=== PATIENT | male | born 1980 | race Caucasian/White ===

== ENCOUNTER 2016-12-14 09:55 | Inpatient (IN) | payer SELFPAY ==
[2016-12-14] VITALS (11 sets, daily range): BP systolic 149–264; BP diastolic 83–179; PULSE 66–96; RESP 13–18; TEMP 98.2–98.8; O2SAT 93–98
[~2016-12-14] VITALS: Ht 190.5 cm; Wt 118.3 kg
[~2016-12-14 09:55] MED LIST: CIPR500T2 PO; HYDR-2768 PO; LISI40TA PO; LORT5TAB PO; METR-1 PO; STOO100C PO
--- NOTE | 2016-12-14 10:13 | PD ---
HPI Chief Complaint: Bleeding Time Seen by Provider: 10:13 Travel History International Travel<30 days: No Contact w/Intl Traveler<30days: No Traveled to known affect area: No History of Present Illness HPI 36-year-old male came to the emergency room with history of coughing up blood and hematospermia. Patient says that the hematospermia has been going on for past 1 month but for past 2 weeks it has been consistent with every ejaculation. Coughing of blood has been going on for past 1 week. He has some shortness of breath and some chest pain. Location no headache. His blood pressure upon arrival was 245 systolic. He shouldn't has history of hypertension but has not taken any of his medications for past 4 months because he does not have insurance. No history of penile discharge otherwise. No history of long distance travel or any recent surgeries or procedure. Patient has never had blood clots in the legs or lungs. There is family history of breast cancer and Hodgkin's lymphoma in his mother. Patient is a heavy smoker for many years. [facility] Past Medical History Narrative Medical List of his past medical history as reviewed from the nursing note. Cancer: No Cardiovascular Problems: Yes Diverticulitis: Yes Endocrine: No Genitourinary: No Hypertension: Yes Immune Disorder: No Musculoskeletal: No Neurologic: No Reproductive: No Respiratory: No Tetanus Vaccination: Unknown Influenza Vaccination: No Past Surgical History Endocrine Surgery: Yes (tonsillectomy when 6 years old) Other Surgery: Yes Social History Alcohol Use: No Tobacco Use: Yes (1 ppd) Substance Use: Yes (IRENA ) Allergies-Medications (Allergen,Severity, Reaction): Coded Allergies: No Known Allergies (Verified , 12/04/11) Comments No known drug allergies. Reported Meds & Prescriptions Reported Meds & Active Scripts Active Reported Hydrochlorothiazide 25 Mg Tab 25 Mg PO DAILY Lisinopril 40 Mg Tab 40 Mg PO DAILY Narrative Medication List of his home medications reviewed from the nursing note. However patient has not taken any of these medications in past 4 months. Review of Systems Except as stated in HPI: all other systems reviewed are Neg Physical Exam Narrative GENERAL: Awake, alert, obese, mild distress SKIN: Warm and dry. HEAD: Atraumatic. Normocephalic. EYES: Pupils equal and round. No scleral icterus. No injection or drainage. ENT: No nasal bleeding or discharge. Mucous membranes pink and moist. NECK: Trachea midline. No JVD. CARDIOVASCULAR: Regular rate and rhythm. No murmur appreciated. RESPIRATORY: No accessory muscle use. Coarse breath sounds. Breath sounds equal bilaterally. GASTROINTESTINAL: Abdomen soft, non-tender, nondistended. Hepatic and splenic margins not palpable. MUSCULOSKELETAL: No obvious deformities. No clubbing. No cyanosis. No edema. NEUROLOGICAL: Awake and alert. No obvious cranial nerve deficits. Motor grossly within normal limits. Normal speech. PSYCHIATRIC: Appropriate mood and affect; insight and judgment normal. Data Data Last Documented VS Vital Signs Date Time Temp Pulse Resp B/P Pulse Ox O2 Delivery O2 Flow Rate FiO2 12/14/16 11:30 98.8 86 243/151 98 Room Air 12/14/16 10:10 16 Orders Electrocardiogram (12/14/16 10:18) Basic Metabolic Panel (Bmp) (12/14/16 10:18) Ckmb (Isoenzyme) Profile (12/14/16 10:18) Complete Blood Count With Diff (12/14/16 10:18) D-Dimer (12/14/16 10:18) Magnesium (Mg) (12/14/16 10:18) Prothrombin Time / Inr (Pt) (12/14/16 10:18) Act Partial Throm Time (Ptt) (12/14/16 10:18) Troponin I (12/14/16 10:18) Chest, Single Ap (12/14/16 10:18) Ecg Monitoring (12/14/16 10:18) Bilateral Bp Monitoring (12/14/16 10:18) Iv Access Insert/Monitor (12/14/16 10:18) Oximetry (12/14/16 10:18) Oxygen Administration (12/14/16 10:18) Sodium Chloride 0.9% Flush (Ns Flush) (12/14/16 10:30) Labetalol Inj (Trandate Inj) (12/14/16 11:30) Labetalol Inj (Trandate Inj) (12/14/16 11:30) Aspirin Chew (Aspirin Chew) (12/14/16 11:45) Admit Order (Ed Use Only) (12/14/16 11:31) Admit To Inpatient (12/14/16 ) Code Status (12/14/16 11:31) Vital Signs (Adult) Q4H (12/14/16 11:31) Activity Oob With Assistance (12/14/16 11:31) Diet Heart Healthy (12/14/16 Lunch) Sodium Chloride 0.9% Flush (Ns Flush) (12/14/16 11:45) Sodium Chloride 0.9% Flush (Ns Flush) (12/14/16 21:00) Acetaminophen (Tylenol) (12/14/16 11:45) Ondansetron Inj (Zofran Inj) (12/14/16 11:45) Sennosides (Senokot) (12/14/16 11:45) Temazepam (Restoril) (12/14/16 11:45) Comprehensive Metabolic Panel (12/15/16 06:00) Complete Blood Count With Diff (12/15/16 06:00) Creatine Kinase (Cpk) (12/14/16 17:00) Creatine Kinase (Cpk) (12/14/16 23:00) Troponin I (12/14/16 17:00) Troponin I (12/14/16 23:00) Electrocardiogram (12/14/16 17:00) Electrocardiogram (12/14/16 23:00) Case Management Consult (12/14/16 11:31) Scd Bilateral/Knee High SHEFALI.BID (12/14/16 11:31) Willy Bilateral/Knee High SHEFALI.QSHIFT (12/14/16 11:31) Acetaminophen (Tylenol) (12/14/16 11:45) Naloxone Inj (Narcan Inj) (12/14/16 11:45) Inpatient Certification (12/14/16 ) Lipid Profile (12/15/16 06:00) Hemoglobin (Hgb) A1c (12/15/16 06:00) Echo 2d Comp W/Dopp(Routine) (12/14/16 ) Labs Laboratory Tests Test 12/14/16 10:28 White Blood Count 10.3 TH/MM3 Red Blood Count 5.27 MIL/MM3 Hemoglobin 17.8 GM/DL Hematocrit 50.8 % Mean Corpuscular Volume 96.4 FL Mean Corpuscular Hemoglobin 33.7 PG Mean Corpuscular Hemoglobin 35.0 % Concent Red Cell Distribution Width 12.8 % Platelet Count 143 TH/MM3 Mean Platelet Volume 9.3 FL Neutrophils (%) (Auto) 66.2 % Lymphocytes (%) (Auto) 22.5 % Monocytes (%) (Auto) 7.6 % Eosinophils (%) (Auto) 3.1 % Basophils (%) (Auto) 0.6 % Neutrophils # (Auto) 6.8 TH/MM3 Lymphocytes # (Auto) 2.3 TH/MM3 Monocytes # (Auto) 0.8 TH/MM3 Eosinophils # (Auto) 0.3 TH/MM3 Basophils # (Auto) 0.1 TH/MM3 CBC Comment DIFF FINAL Differential Comment Prothrombin Time 11.0 SEC Prothromb Time International 1.0 RATIO Ratio Activated Partial 28.7 SEC Thromboplast Time D-Dimer Quantitative (PE/DVT) 0.30 MG/L FEU Sodium Level 138 MEQ/L Potassium Level 3.8 MEQ/L Chloride Level 105 MEQ/L Carbon Dioxide Level 27.0 MEQ/L Anion Gap 6 MEQ/L Blood Urea Nitrogen 15 MG/DL Creatinine 1.28 MG/DL Estimat Glomerular Filtration 63 ML/MIN Rate Random Glucose 114 MG/DL Calcium Level 9.2 MG/DL Magnesium Level 2.4 MG/DL Total Creatine Kinase 94 U/L Troponin I 0.30 NG/ML MDM Medical Decision Making Medical Screen Exam Complete: Yes Emergency Medical Condition: Yes Medical Record Reviewed: Yes Interpretation(s) Twelve-lead EKG was reviewed by me. Normal sinus rhythm, normal axis, LVH strain. Heart rate of 89 bpm. Differential Diagnosis Hypertensive crisis, PE, UTI, STD Narrative Course 11:22 AM blood test results came back. Patient had low risk for PE and d-dimer is negative. I am satisfied and would not pursue further for PE. His troponin is elevated but could be from the hypertension as well. I have ordered labetalol bolus and drip for this patient. He will get 2 baby aspirin's. Patient will need to be admitted. Critical Care Narrative Aggregate critical care time was 30 minutes. Time to perform other separately billable procedures was not included in the critical care time. My time did not include minutes spent treating any other patients simultaneously or on activities that did not directly contribute to the patient's treatment. The services I provided to this patient were to treat and/or prevent clinically significant deterioration that could result in: Hypotensive emergency, labetalol drip, elevated troponin I provided critical care services requiring my management, as noted below: Chart data review, documentation time, medication orders and management, vital sign assessments/reviewing monitor data, ordering and reviewing lab tests, ordering and interpreting/reviewing x-rays and diagnostic studies, care of the patient and discussion of the patient with the admitting physicians. Procedures EKG Prior to Arrival: No Diagnosis Primary Impression: Hypertensive emergency Additional Impressions: Elevated troponin I level Hemoptysis Hematospermia Admitting Information Admitting Physician Requests: Admit Mariluz Gray MD Dec 14, 2016 10:13
[2016-12-14] MEDS ORDERED: SODIUM CHLORIDE 0.9% FLUSH 5 ML FLUSH IVF PRN (10:30)
[2016-12-14 10:42] LABS: AUTOMATED NEUTROPHIL # 6.8 TH/MM3 (1.8-7.7); BASOPHIL # 0.1 TH/MM3 (0-0.2); BASOPHIL % 0.6 % (0.0-2.0); EOSINOPHIL # 0.3 TH/MM3 (0-0.4); EOSINOPHIL % 3.1 % (0.0-4.0); HEMATOCRIT 50.8 % (39.0-51.0); HEMO FLAGS DIFF FINAL; LYMPH % 22.5 % (9.0-44.0); LYMPHOCYTE # 2.3 TH/MM3 (1.0-4.8); MEAN CELL VOLUME 96.4 FL (80.0-100.0); MEAN CORPUSCULAR HEMOGLOBIN 33.7 PG (27.0-34.0); MONO % 7.6 % (0.0-8.0); NEUT % 66.2 % (16.0-70.0); PLATELET COUNT 143 TH/MM3 (150-450); RED BLOOD COUNT 5.27 MIL/MM3 (4.50-5.90); RED CELL DISTRIBUTION WIDTH 12.8 % (11.6-17.2); WHITE BLOOD COUNT 10.3 TH/MM3 (4.0-11.0)
--- NOTE | 2016-12-14 10:55 | RADRPT ---
EXAM DATE/TIME: 12/14/2016 10:18 [facility] COMPARISON: No previous studies available for comparison. INDICATIONS : Short of breath. MEDICAL HISTORY : Hypertension. SURGICAL HISTORY : None. ENCOUNTER: Initial ACUITY: 2 days PAIN SCORE: 3/10 LOCATION: Bilateral chest FINDINGS: A single view of the chest demonstrates the lungs to be symmetrically aerated without evidence of mas s, infiltrate or effusion. The cardiomediastinal contours are unremarkable. Osseous structures are intact. There are multiple overlying electrocardiogram leads. CONCLUSION: No acute disease. Ned Swanson MD on December 14, 2016 at 10:53 Board Certified Radiologist. This report was verified electronically.
[2016-12-14 10:56] LABS: APTT (PATIENT) 28.7 SEC (24.3-30.1)
[2016-12-14 11:02] LABS: MAGNESIUM 2.4 MG/DL (1.5-2.5); POTASSIUM 3.8 MEQ/L (3.5-5.1)
[2016-12-14] MEDS ORDERED: LABETALOL HCL 100 MG/20 ML VIAL IVP ONE (11:30)
--- NOTE | 2016-12-14 11:38 | HHI.HP ---
[facility] Service [place] [facility] Primary Care Physician No Primary Care Physician Admission Diagnosis hypertensive emergency, elevated troponin, hematospermia Diagnoses: (1) Hypertensive emergency (2) Elevated troponin I level (3) Hematospermia (4) Hypertension (5) Tobacco dependence, continuous (6) MALIGNANT HYPERTENSION Chief Complaint: Hematospermia and hemoptysis Travel History International Travel<30 Days: No Contact w/Intl Traveler <30 Da: No Traveled to Known Affected Are: No History of Present Illness 36-year-old male with history of chronic tobacco abuse, hypertension, however not currently on a oral hypertensive medication 4 months comes to the ED for evaluation of hematospermia comes several months duration but more likely aware of that in the past month now , and as well as hemoptysis 2 days duration however no upper respiratory symptoms. He reports chronic history of tobacco abuse 20+ years. Patient reported being faithful to his and denies any STDs, believes hematospermia likely secondary to poorly controlled blood pressure. Patient also reports a history of masturbation as well as infertility however has not done any sperm count. He denies any other GI bleed. Abnormal labs include troponin I 0.3. He denies any chest pain or shortness of breath. Patient also report, he has not seen a PCP since 2011.He Usually get his medication from his father. 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 Living with girlfriend of previous 2.5 years. T: 17 pyh E: pt denies Illicits: uses cannabinoids 1-2 times/wk; remote hx of LSD and ectasy use as teenager Physical Exam Vital Signs Vital Signs Date Time Temp Pulse Resp B/P Pulse Ox O2 Delivery O2 Flow Rate FiO2 12/14/16 10:26 98 Room Air 12/14/16 10:26 98 Room Air 12/14/16 10:25 90 264/168 255/155 12/14/16 10:10 93 16 Room Air 12/14/16 09:59 98.2 96 16 166/172 98 12/14/16 09:59 262/179 Physical Exam GENERAL: This is a well-nourished, well-developed patient, in no apparent distress. SKIN: No rashes, ecchymoses or lesions. Cool and dry. HEAD: Atraumatic. Normocephalic. No temporal or scalp tenderness. EYES: Pupils equal round and reactive. Extraocular motions intact. No scleral icterus. No injection or drainage. ENT: Nose without bleeding, purulent drainage or septal hematoma. Throat without erythema, tonsillar hypertrophy or exudate. Uvula midline. Airway patent. NECK: Trachea midline. No JVD or lymphadenopathy. Supple, nontender, no meningeal signs. CARDIOVASCULAR: Regular rate and rhythm without murmurs, gallops, or rubs. RESPIRATORY: Clear to auscultation. Breath sounds equal bilaterally. No wheezes , rales, or rhonchi. GASTROINTESTINAL: Abdomen soft, non-tender, nondistended. No hepato-splenomegaly , or palpable masses. No guarding. MUSCULOSKELETAL: Extremities without clubbing, cyanosis, or edema. No joint tenderness, effusion, or edema noted. No calf tenderness. Negative Homans sign bilaterally. NEUROLOGICAL: Awake and alert. Cranial nerves II through XII intact. Motor and sensory grossly within normal limits. Five out of 5 muscle strength in all muscle groups. Normal speech. Laboratory Laboratory Tests Test 12/14/16 10:28 White Blood Count 10.3 Red Blood Count 5.27 Hemoglobin 17.8 Hematocrit 50.8 Mean Corpuscular Volume 96.4 Mean Corpuscular Hemoglobin 33.7 Mean Corpuscular Hemoglobin 35.0 Concent Red Cell Distribution Width 12.8 Platelet Count 143 Mean Platelet Volume 9.3 Neutrophils (%) (Auto) 66.2 Lymphocytes (%) (Auto) 22.5 Monocytes (%) (Auto) 7.6 Eosinophils (%) (Auto) 3.1 Basophils (%) (Auto) 0.6 Neutrophils # (Auto) 6.8 Lymphocytes # (Auto) 2.3 Monocytes # (Auto) 0.8 Eosinophils # (Auto) 0.3 Basophils # (Auto) 0.1 CBC Comment DIFF FINAL Differential Comment Prothrombin Time 11.0 Prothromb Time International 1.0 Ratio Activated Partial 28.7 Thromboplast Time D-Dimer Quantitative (PE/DVT) 0.30 Sodium Level 138 Potassium Level 3.8 Chloride Level 105 Carbon Dioxide Level 27.0 Anion Gap 6 Blood Urea Nitrogen 15 Creatinine 1.28 Estimat Glomerular Filtration 63 Rate Random Glucose 114 Calcium Level 9.2 Magnesium Level 2.4 Total Creatine Kinase 94 Troponin I 0.30 Result Diagram: 12/14/16 1028 12/14/16 1028 Imaging Last Impressions Chest X-Ray 12/14/16 1018 Signed Impressions: Service Date/Time: , December 14, 2016 10:18 - CONCLUSION: No acute disease. Ned Swanson MD Assessment and Plan Problem List: (1) MALIGNANT HYPERTENSION ICD Code: 401.0 Status: Chronic (2) Hypertensive emergency ICD Code: I16.1 Status: Acute (3) Elevated troponin I level ICD Code: R79.89 Status: Acute (4) Hematospermia ICD Code: R36.1 Status: Acute (5) Hemoptysis ICD Code: R04.2 Status: Acute (6) Tobacco dependence, continuous ICD Code: 305.1 Status: Chronic (7) Hypertension ICD Code: 401.0 Status: Chronic Assessment and Plan 36-year-old male with 1-Hypertensive urgency: He was started on labetalol drip, which I will continue. I will admit patient in ICU for close monitoring. Likely will resume hydrochlorothiazide 25 mg daily and Prinivil 40 mg daily when appropriate. Check 2-D echo secondary to elevated cardiac enzyme. 2-Elevated troponin I: Likely secondary to hypertensive crisis; however will continue ACS ruled out per protocol with serial cardiac enzyme and EKGs. Obtain 2-D echo. Will hold on cardiology consultation is patient denies any chest pain. 3-Chronic tobacco abuse: Patient advised against, start nicotine patch. 4-Hemoptysis 2 days: Patient with history of tobacco abuse, chest x-ray noted and reviewed without any cardio pulmonary disease. Continue to monitor and consider chest CT as well as pulmonary medicine consultation if no improvement. 5-Hematospermia: Check UA,UDS, sperm count, rule out STDs 6-Hypertension: Currently on labetalol drip 7-Thrombocytopenia: Will check LFTs and consider liver ultrasound 8-Impaired fasting glucose: No known history of diabetes type 2, check hemoglobin A1c as well as lipid profile and treat accordingly DVT prophylaxis: Chemical anti-prophylaxis is contraindicated, bilateral SCDs Code Status Full code Discussed Condition With Patient, ED physician Physician Certification 2 Midnight Certification Type: Admission for Inpatient Services Order for Inpatient Services The services are ordered in accordance with Medicare regulations or non- Medicare payer requirements, as applicable. In the case of services not specified as inpatient-only, they are appropriately provided as inpatient services in accordance with the 2-midnight benchmark. Estimated LOS (days): 2 days is the estimated time the patient will need to remain in the hospital, assuming treatment plan goals are met and no additional complications. Post-Hospital Plan: Not yet determined German King MD Dec 14, 2016 11:38
[2016-12-14] MEDS ORDERED: SENNOSIDES 8.6 MG TAB PO PRN (11:45)
[2016-12-14] MEDS ORDERED: ONDANSETRON HCL 4 MG/2 ML VIAL IVP PRN (11:45)
[2016-12-14] MEDS ORDERED: TEMAZEPAM 15 MG CAP PO PRN (11:45)
[2016-12-14] MEDS ORDERED: ACETAMINOPHEN 325 MG TAB PO PRN ×2 (11:45)
[2016-12-14] MEDS ORDERED: NALOXONE HCL 0.4 MG/ML AMP IV PRN (11:45)
[2016-12-14] MEDS ORDERED: ASPIRIN 81 MG CHEW TAB CHEW ONE (11:45)
[2016-12-14] MEDS ORDERED: SODIUM CHLORIDE 0.9% FLUSH 5 ML FLUSH FLUSH PRN (11:45)
[2016-12-14] MEDS: LABETALOL INJ 500 MG in SODIUM CHLORIDE 0.9% INJ 150 ML IV SCH ×2 (12:20→18:48)
[2016-12-14] MEDS ORDERED: RESP: ALBUTEROL 2.5 MG/IPRATROPIUM 0.5 MG NEB (PRN) NEB (12:30)
[2016-12-14 13:55] LABS: BLOOD, URINE NEG (NEG); COMMENT (UR) CULT NOT INDICATED; CULTURE IF INDICATED CULT NOT INDICATED; GLUCOSE,URINE NEG (NEG); KETONE, URINE NEG (NEG); MUCUS URINE FEW /lpf (OCC); NITRITE,URINE NEG (NEG); PH, URINE 7.5 (5.0-8.5); SQUAMOUS EPITHELIAL CELL URINE <1 /hpf (0-5); URINE COLOR YELLOW (YELLW/STRAW)
[2016-12-14 14:00] LABS: AMPHETAMINE, URINE NEG (NEG); BARBITURATES, URINE NEG (NEG); COCAINE, URINE NEG (NEG)
[2016-12-14] MEDS ORDERED: LISI40TA PO (14:30)
[2016-12-14] MEDS ORDERED: HYDR25TA5 PO (14:30)
[2016-12-14] MEDS: NICOTINE 21 MG/24 HR PATCH TD SCH (18:48)
[2016-12-14] MEDS: SODIUM CHLORIDE 0.9% FLUSH 5 ML FLUSH FLUSH SCH (20:38)
--- NOTE | 2016-12-14 20:50 | EKG ---
Date Performed: 12/14/2016 Time Performed: 09:36:32 PTAGE: 36 years EKG: Sinus rhythm LEFT VENTRICULAR HYPERTROPHY AND ST-T CHANGE ABNORMAL ECG INTERPRETATION BASED ON A DEFAULT AGE OF 3 0 YEARS NO PREVIOUS TRACING DOCTOR: Kevin Colón Interpretating Date/Time 12/14/2016 20:49:39
[2016-12-14] MEDS ORDERED: CHLORHEXIDINE GLUCONATE 2 % 1 PACK (2 CLOTHS)(extra cloths) TOP PRN (21:00)
[2016-12-14] MEDS ORDERED: REMOVE OLD NICODERM (NICOTINE) PATCH TD SCH (21:00)
[2016-12-15] VITALS (7 sets, daily range): BP systolic 135–145; BP diastolic 75–80; PULSE 63–70; RESP 12–18; TEMP 97.5–98.2; O2SAT 92–95
[2016-12-15] MEDS: LABETALOL INJ 500 MG in SODIUM CHLORIDE 0.9% INJ 150 ML IV SCH ×2 (02:44→06:32)
[2016-12-15] MEDS ORDERED: CHLORHEXIDINE GLUCONATE 2 % 1 PACK (2 CLOTHS)(taper/protocol) TOP SCH (04:00)
[2016-12-15 06:01] LABS: AUTOMATED NEUTROPHIL # 8.8 TH/MM3 (1.8-7.7); BASOPHIL % 0.4 % (0.0-2.0); EOSINOPHIL # 0.2 TH/MM3 (0-0.4); HEMATOCRIT 45.5 % (39.0-51.0); HEMO FLAGS DIFF FINAL; MEAN CELL VOLUME 95.2 FL (80.0-100.0); MEAN CORPUSCULAR HEMOGLOBIN 33.3 PG (27.0-34.0); MONO % 7.5 % (0.0-8.0); NEUT % 73.1 % (16.0-70.0); PLATELET COUNT 143 TH/MM3 (150-450); RED BLOOD COUNT 4.77 MIL/MM3 (4.50-5.90)
[2016-12-15 06:29] LABS: ALKALINE PHOSPHATASE 66 U/L (45-117); ALT (GPT) 37 U/L (12-78); ANION GAP 9 MEQ/L (5-15); AST (GOT) 16 U/L (15-37); BICARBONATE 25.9 MEQ/L (21.0-32.0); BLOOD UREA NITROGEN 23 MG/DL (7-18); CHLORIDE 106 MEQ/L (98-107); GLOMERULAR FILTRATION RATE 53 ML/MIN (>89); HDL CHOLESTEROL 23.5 MG/DL (40.0-60.0); LDL CHOLESTEROL 148 MG/DL (0-99); POTASSIUM 3.1 MEQ/L (3.5-5.1); SODIUM (NA) 141 MEQ/L (136-145); TOTAL BILIRUBIN ADULT 0.8 MG/DL (0.2-1.0)
--- NOTE | 2016-12-15 06:58 | RADRPT ---
EXAM DATE/TIME: 12/15/2016 05:36 [facility] COMPARISON: No previous studies available for comparison. INDICATIONS : Abdominal pain. MEDICAL HISTORY : None. SURGICAL HISTORY : None. ENCOUNTER: Initial ACUITY: 1 day PAIN SCORE: 5/10 LOCATION: Right abdomen, upper quadrant. FINDINGS: The bowel gas is nonspecific. There are no signs of obstruction or free air for technique. No defini te calcified stones are identified for technique. CONCLUSION: Nonspecific abdomen. Rahel Bardales MD on December 15, 2016 at 6:57 Board Certified Radiologist. This report was verified electronically.
[2016-12-15] MEDS: NICOTINE 21 MG/24 HR PATCH TD SCH (08:29)
[2016-12-15] MEDS ORDERED: LABETALOL HCL 100 MG/20 ML VIAL IV PUSH PRN (08:30)
[2016-12-15] MEDS: SODIUM CHLORIDE 0.9% FLUSH 5 ML FLUSH FLUSH SCH (08:31)
--- NOTE | 2016-12-15 08:35 | HHI.PR ---
Subjective Remarks Follow-up hypertensive crisis 12/15/16-patient seen and examined, complains of abdominal pain however abdominal x-ray negative. States he's had 3 bowel movements. Currently normotensive. Objective Vitals Vital Signs Date Time Temp Pulse Resp B/P Pulse Ox O2 Delivery O2 Flow Rate FiO2 12/15/16 06:00 66 12/15/16 05:03 18 12/15/16 04:00 70 12/15/16 04:00 97.5 64 18 139/75 92 12/15/16 02:00 67 12/15/16 00:00 97.6 69 12 145/80 92 12/15/16 00:00 69 12/14/16 22:00 71 12/14/16 20:00 75 12/14/16 20:00 98.3 75 13 149/83 93 12/14/16 18:00 75 12/14/16 16:00 98.3 66 18 151/85 95 12/14/16 16:00 77 12/14/16 14:00 98.2 70 18 151/84 96 Room Air 12/14/16 13:00 70 18 166/97 96 Room Air 12/14/16 12:30 78 16 218/134 98 Room Air 12/14/16 11:30 98.8 86 243/151 98 Room Air 12/14/16 10:26 98 Room Air 12/14/16 10:26 98 Room Air 12/14/16 10:25 90 264/168 255/155 12/14/16 10:10 93 16 Room Air 12/14/16 09:59 98.2 96 16 166/172 98 12/14/16 09:59 262/179 I/O 12/14/16 12/14/16 12/14/16 12/15/16 12/15/16 12/15/16 07:00 15:00 23:00 07:00 15:00 23:00 Intake Total 836 ml 426 ml Output Total 350 ml Balance 486 ml 426 ml Intake Oral 480 ml 80 ml IV Total 356 ml 346 ml Output Urine Total 350 ml # Voids 2 # Bowel Movements 1 1 Result Diagram: 12/15/16 0346 12/15/16 0346 Imaging Last Impressions Abdomen X-Ray 12/15/16 0000 Signed Impressions: Service Date/Time: Thursday, December 15, 2016 05:36 - CONCLUSION: Nonspecific abdomen. Rahel Bardales MD Chest X-Ray 12/14/16 1018 Signed Impressions: Service Date/Time: November 10:18 - CONCLUSION: No acute disease. Ned Swanson MD Objective Remarks GENERAL: NAD SKIN: Warm and dry. HEAD: Normocephalic. EYES: No scleral icterus. No injection or drainage. NECK: Supple, trachea midline. No JVD or lymphadenopathy. CARDIOVASCULAR: Regular rate and rhythm without murmurs, gallops, or rubs. RESPIRATORY: Breath sounds equal bilaterally. No accessory muscle use. GASTROINTESTINAL: Abdomen soft, mildly tender, nondistended. MUSCULOSKELETAL: No cyanosis, or edema. BACK: Nontender without obvious deformity. No CVA tenderness. A/P Problem List: (1) MALIGNANT HYPERTENSION ICD Code: 401.0 Status: Resolved (2) Hypertensive emergency ICD Code: I16.1 Status: Resolved (3) Elevated troponin I level ICD Code: R79.89 Status: Acute (4) Hematospermia ICD Code: R36.1 Status: Acute (5) Hemoptysis ICD Code: R04.2 Status: Resolved (6) Tobacco dependence, continuous ICD Code: 305.1 Status: Chronic (7) Hypertension ICD Code: 401.0 Status: Chronic Assessment and Plan 6-year-old male with 1-Hypertensive urgency: Currently normotensive on labetalol drip which will discontinued and resume hydrochlorothiazide 25 mg daily and Prinivil 40 mg daily. Check 2-D echo secondary to elevated cardiac enzyme. 2-Elevated troponin I: Likely secondary to hypertensive crisis; ACS ruled out per protocol with serial cardiac enzyme and EKGs. Obtain 2-D echo. Will hold on cardiology consultation is patient denies any chest pain. 3-Chronic tobacco abuse: Patient advised against, continue nicotine patch. 4-Hemoptysis 2 days: Resolved since admission. Patient with history of tobacco abuse, chest x-ray noted and reviewed without any cardio pulmonary disease. Continue to monitor and consider chest CT as well as pulmonary medicine consultation if no improvement. 5-Hematospermia: UA negative,UDS positive for cannabinoid, sperm count outpatient. Continue to monitor 6-Hypertension: Normotensive on labetalol drip, discontinue labetalol drip and start hydralazine and Prinivil. 7-Thrombocytopenia: Will check LFTs and consider liver ultrasound 8-Impaired fasting glucose: No known history of diabetes type 2, hemoglobin A1c pending as well as lipid profile and treat accordingly DVT prophylaxis: Chemical anti-prophylaxis is contraindicated, bilateral SCDs 9-Abdominal pain: Nonspecifically, KUB negative. Continue conservative management 10-Hypokalemia: Replace electrolyte 11-Hyperlipidemia: LDL 148, start Lipitor 10 mg at bedtime Will discharge patient home as his condition has tremendously improved since admission Discharge Planning Discharge patient to home Condition on discharge: Improved Regular Diet as tolerated Ad Jenny activity Rx written: Hydrochlorothiazide 25 mg daily Prinivil 40 mg daily Potassium 10 mEq daily Lipitor 10 mg at bedtime Follow-up with primary care physician 1 week German King MD Dec 15, 2016 08:35
[2016-12-15] MEDS ORDERED: LIPI10TA PO (08:39)
[2016-12-15] MEDS ORDERED: K-TA10TA PO (08:39)
[2016-12-15] MEDS ORDERED: HYDR25TA5 PO (08:39)
[2016-12-15] MEDS ORDERED: LISI-515 PO (08:39)
[2016-12-15] MEDS ORDERED: POTASSIUM CHLORIDE 10 MEQ CONTROLLED RELEASE TAB PO ONE (08:45)
[2016-12-15] MEDS ORDERED: LISINOPRIL 20 MG TAB PO SCH (09:00)
[2016-12-15] MEDS ORDERED: PANTOPRAZOLE SOD 40 MG DELAYED RELEASE TAB PO SCH (09:00)
[2016-12-15] MEDS ORDERED: HYDROCHLOROTHIAZIDE 25 MG TAB PO SCH (09:00)
--- NOTE | 2016-12-15 09:04 | EC ---
Study Study Date:12/14/2016 STUDY CONCLUSIONS SUMMARY - Procedure narrative: Transthoracic echocardiography. Image quality was good. Scanning was performed from the parasternal, apical, and subcostal acoustic windows. - Left ventricle: The cavity size was normal. Wall thickness was increased in a pattern of moderate LVH. Systolic function was mildly reduced. The estimated ejection fraction was 45% . Diffuse hypokinesis, possibly more pronounced at the apex. - Mitral valve: Trace regurgitation. If LV function is below 40, please consider prescribing an ACEI or ARB or document rationale for non-use. PROCEDURE DATA STUDY STATUS: Elective. Procedure: Transthoracic echocardiography. Image quality was good. Scanning was performed from the parasternal, apical, and subcostal acoustic windows. Study completion: The patient tolerated the procedure well. Transthoracic echocardiography. M-mode, complete 2D, complete spectral Doppler, and color Doppler. Height: Height: 75in. Weight: Weight: 259.5lb. Body mass index: BMI: 32.5kg/m^2. Body surface area: BSA: 2.45m^2. Patient status: Inpatient. CARDIAC ANATOMY LEFT VENTRICLE: The cavity size was normal. Wall thickness was increased in a pattern of moderate LVH. Systolic function was mildly reduced. The estimated ejection fraction was 45% . Diffuse hypokinesis, possibly more pronounced at the apex. AORTIC VALVE: Trileaflet; normal thickness leaflets. Doppler: Transvalvular velocity was within the normal range. There was no stenosis. No regurgitation. Valve area: 2.6cm^2(VTI). Indexed valve area: 1.06cm^2/m^2 (VTI). Valve area: 2.67cm^2 (Vmax). Indexed valve area: 1.09cm^2/m^2 (Vmax). Mean gradient: 4mm Hg (S). AORTA: Aortic root: The aortic root was normal in size. MITRAL VALVE: Structurally normal valve. Doppler: Transvalvular velocity was within the normal range. There was no evidence for stenosis. Trace regurgitation. LEFT ATRIUM: The atrium was normal in size. RIGHT VENTRICLE: The cavity size was normal. Wall thickness was normal. PULMONIC VALVE: Doppler: Transvalvular velocity was within the normal range. There was no evidence for stenosis. No regurgitation. TRICUSPID VALVE: Structurally normal valve. Doppler: Transvalvular velocity was within the normal range. No regurgitation. PULMONARY ARTERY: The main pulmonary artery was normal-sized. Systolic pressure was within the normal range. RIGHT ATRIUM: The atrium was normal in size. PERICARDIUM: There was no pericardial effusion. SYSTEMIC VEINS: Inferior vena cava: The vessel was normal in size. Patient weight: 259.5lb _Ejection fraction:_ 65-75% _Fractional shortening:_ 32% up to 5Kg 5-11.5Kg 11.6-22.9Kg 23-45Kg 45-57Kg Aortic Root 7-13 <17 13-22 17-27 17-27 LA diam 6-13 <23 24-38 33-47 37-40 RVID 10-17 7-15 7-15 7-18 8-17 LVIDd 12-22 <32 24-38 33-47 37-40 LVPW 2-4 3-6 5-7 6-8 7-8 IVS 2-4 3-6 5-7 6-8 7-8 BASIC MEASUREMENTS ADULT NORMAL Left ventricle LV internal dimension, ED, chordal 44.6 mm 43-52 level, PLAX LV internal dimension, ES, chordal 37.2 mm 23-38 level, PLAX Fractional shortening, chordal level, *17 % >29 PLAX LV posterior wall thickness, ED 16.6 mm IVS/LVPW ratio, ED 1.01 <1.3 Ventricular septum Septal thickness, ED 16.7 mm Aortic valve Leaflet separation 25 mm 15-26 Aorta Root diameter, ED 33 mm Left atrium Anterior-posterior dimension 48 mm Anterior-posterior dimension index 1.96 cm/m^2 <2.2 BASIC MEASUREMENTS ADULT NORMAL Aortic valve Leaflet separation 25 mm 15-26 DOPPLER MEASUREMENTS ADULT NORMAL Aortic valve Peak velocity, S 117 cm/s Mean velocity, S 89.5 cm/s VTI, S 20.4 cm Mean gradient, S 4 mm Hg Valve area, VTI 2.6 cm^2 Valve area index, VTI 1.06 cm^2/m^2 Valve area, Vmax 2.67 cm^2 Valve area index, Vmax 1.09 cm^2/m^2 Mitral valve Peak E-wave velocity 55.3 cm/s Peak A-wave velocity 43.4 cm/s Deceleration time 165 ms 150-230 Peak E/A ratio 1.3 Pulmonic valve Peak velocity, S 75.2 cm/s LEGEND: Mean values are shown as u=mean value. Asterisk (*) nye values outside specified normal range. Prepared and signed by Gabriel Alexander [id number]
[2016-12-15 16:41] LABS: HEMOGLOBIN A1b 0.8 %; HEMOGLOBIN Ao 86.5 %; HEMOGLOBIN F 0.9 %; HEMOGLOBIN LA1C 1.9 %; HEMOGLOBIN P3 3.6 %
[2016-12-15] MEDS ORDERED: ATORVASTATIN 10 MG TAB PO SCH (21:00)
--- NOTE | 2016-12-15 22:44 | EKG ---
Date Performed: 12/14/2016 Time Performed: 23:01:42 PTAGE: 36 years EKG: Sinus rhythm LEFT VENTRICULAR HYPERTROPHY AND ST-T CHANGE ABNORMAL ECG PREVIOUS TRACING : 12/14/2016 16.43 DOCTOR: Nicho Oliva Interpretating Date/Time 12/15/2016 22:42:29
--- NOTE | 2016-12-15 22:52 | EKG ---
Date Performed: 12/14/2016 Time Performed: 16:43:07 PTAGE: 36 years EKG: Sinus rhythm LEFT VENTRICULAR HYPERTROPHY AND ST-T CHANGE ABNORMAL ECG PREVIOUS TRACING : 12/14/2016 09.36 DOCTOR: Nicoh Oliva Interpretating Date/Time 12/15/2016 22:46:52
== END 2016-12-15 13:30 | disposition home or self-care (01) | DRG 305 ==
LOC: NEPE 09:55 → NEDA 11:38 → HIMW 14:40
PROVIDERS: ADMIT Hospitalist; ATTEND Hospitalist
DX: I16.9 Hypertensive crisis, unspecified (principal); D69.6 Thrombocytopenia, unspecified; R04.2 Hemoptysis; R36.1 Hematospermia; I10 Essential (primary) hypertension; F17.210 Nicotine dependence, cigarettes, uncomplicated; R74.8 Abnormal levels of other serum enzymes; R73.01 Impaired fasting glucose; R10.9 Unspecified abdominal pain; E78.5 Hyperlipidemia, unspecified; E87.6 Hypokalemia; Z91.14 Patient's other noncompliance with medication regimen; Z80.3 Family history of malignant neoplasm of breast; Z80.7 Family history of other malignant neoplasms of lymphoid, hematopoietic and related tissues
CPT/HCPCS: 71010; 74000; 80048; 80053; 80061; 80307; 81001; 82550; 83036; 83735; 84484; 85025; 85379; 85610; 85730; 87641; 93005; 93306; 96374; J2405

== ENCOUNTER 2017-08-17 11:20 | Emergency (ER) | payer OTHER ==
[~2017-08-17] VITALS: Ht 193 cm; Wt 63.5 kg
[~2017-08-17 11:20] MED LIST changes: -CIPR500T2 PO; -HYDR-2768 PO; +HYDR25TA5 PO; +K-TA10TA PO; +LIPI10TA PO; +LISI-515 PO; -LORT5TAB PO; -METR-1 PO; -STOO100C PO
[2017-08-17 11:23] VITALS: BP 234/145; PULSE 79; RESP 12; TEMP 98.5; O2SAT 97
[2017-08-17 11:27] VITALS: BP 220/138
--- NOTE | 2017-08-17 11:29 | PD ---
Physical Exam Time Seen by Provider: 11:27 Narrative 36-year-old male sent by Dr. Iglesias for elevated blood pressure today. Takes labetalol and took his medication this morning. Reports mild headache and nausea. Says he feels flushed all the time. Denies chest pain, shortness of breath, change in vision. Patient seen in triage. VS reviewed. Patient awaiting bed placement. Data Data Last Documented VS Vital Signs Date Time Temp Pulse Resp B/P (MAP) Pulse Ox O2 Delivery O2 Flow Rate FiO2 08/17/17 11:23 98.5 79 12 234/145 (174) 97 MDM Supervised Visit with QUYEN: Sri Neely Aug 17, 2017 11:29
[2017-08-17] MEDS ORDERED: LABE300T PO (11:37)
[2017-08-17] MEDS ORDERED: LABETALOL HCL 100 MG/20 ML VIAL IV PUSH ONE (11:45)
[2017-08-17 12:00] VITALS: BP 191/113; PULSE 69; RESP 18; O2SAT 95
[2017-08-17 12:06] LABS: AUTOMATED NEUTROPHIL # 5.9 TH/MM3 (1.8-7.7); BASOPHIL # 0.1 TH/MM3 (0-0.2); BASOPHIL % 0.9 % (0.0-2.0); EOSINOPHIL # 0.3 TH/MM3 (0-0.4); EOSINOPHIL % 3.5 % (0.0-4.0); HEMATOCRIT 46.4 % (39.0-51.0); HEMO FLAGS DIFF FINAL; LYMPH % 26.8 % (9.0-44.0); LYMPHOCYTE # 2.6 TH/MM3 (1.0-4.8); MEAN CELL VOLUME 97.2 FL (80.0-100.0); MEAN CORPUSCULAR HEMOGLOBIN 33.6 PG (27.0-34.0); MEAN CORPUSCULAR HGB CONC 34.5 % (32.0-36.0); NEUT % 61.8 % (16.0-70.0); PLATELET COUNT 174 TH/MM3 (150-450); RED BLOOD COUNT 4.77 MIL/MM3 (4.50-5.90); RED CELL DISTRIBUTION WIDTH 12.9 % (11.6-17.2); WHITE BLOOD COUNT 9.6 TH/MM3 (4.0-11.0)
[2017-08-17 12:27] LABS: POTASSIUM 3.8 MEQ/L (3.5-5.1)
[2017-08-17] MEDS ORDERED: AMLO5TAB2 PO (12:46)
--- NOTE | 2017-08-17 12:46 | PD ---
HPI Chief Complaint: Hypertension Time Seen by Provider: 11:34 Travel History International Travel<30 days: No Contact w/Intl Traveler<30days: No Traveled to known affect area: No History of Present Illness HPI This is a 36-year-old male who presents to the emergency department having been sent from his primary care doctor's office because of high blood pressure. He has a history of high blood pressure and he was admitted earlier in the year for it. He takes labetalol at home. He went to his primary care doctor for routine checkup. He denies any symptoms. He has no chest pain, shortness of breath, headache, nausea, vomiting, difficulty walking or difficulty talking. PFSH Past Medical History Cancer: No Cardiovascular Problems: Yes Diverticulitis: Yes Endocrine: No Gastrointestinal Disorders: No Genitourinary: No Hypertension: Yes Immune Disorder: No Implanted Vascular Access Dvce: No Musculoskeletal: No Neurologic: No Reproductive: No Respiratory: No Past Surgical History Endocrine Surgery: Yes (tonsillectomy when 6 years old) Other Surgery: Yes Social History Alcohol Use: No Tobacco Use: Yes (1.5 ppd) Substance Use: Yes (MARAJIANA daily) Allergies-Medications (Allergen,Severity, Reaction): Coded Allergies: No Known Allergies (Verified , 12/04/11) Reported Meds & Prescriptions Reported Meds & Active Scripts Active Reported Labetalol (Labetalol HCl) 300 Mg Tab 500 Mg PO BID Review of Systems Except as stated in HPI: all other systems reviewed are Neg Physical Exam Narrative GENERAL:Well appearing, no acute distress SKIN: Focused skin assessment warm and dry. HEAD: Atraumatic. Normocephalic. EYES: Pupils equal and round. No injection or drainage. ENT: Moist mucous membranes NECK: Trachea midline. CARDIOVASCULAR: Regular rate and rhythm. No murmur appreciated. RESPIRATORY: Clear to auscultation. Breath sounds equal bilaterally. GASTROINTESTINAL: Abdomen soft, non-tender, nondistended. MUSCULOSKELETAL: No obvious deformities. NEUROLOGICAL: Awake and alert. No obvious cranial nerve deficits. Moving all extremities. PSYCHIATRIC: Appropriate mood and affect; insight and judgment normal. Data Data Last Documented VS Vital Signs Date Time Temp Pulse Resp B/P (MAP) Pulse Ox O2 Delivery O2 Flow Rate FiO2 08/17/17 12:00 69 18 191/113 (139) 95 Room Air 08/17/17 11:23 98.5 Orders Orders Complete Blood Count With Diff (08/17/17 11:40) Basic Metabolic Panel (Bmp) (08/17/17 11:40) Electrocardiogram (08/17/17 ) Labetalol Inj (Trandate Inj) (08/17/17 11:45) Labs Laboratory Tests Test 08/17/17 11:50 White Blood Count 9.6 TH/MM3 Red Blood Count 4.77 MIL/MM3 Hemoglobin 16.0 GM/DL Hematocrit 46.4 % Mean Corpuscular Volume 97.2 FL Mean Corpuscular Hemoglobin 33.6 PG Mean Corpuscular Hemoglobin Concent 34.5 % Red Cell Distribution Width 12.9 % Platelet Count 174 TH/MM3 Mean Platelet Volume 9.9 FL Neutrophils (%) (Auto) 61.8 % Lymphocytes (%) (Auto) 26.8 % Monocytes (%) (Auto) 7.0 % Eosinophils (%) (Auto) 3.5 % Basophils (%) (Auto) 0.9 % Neutrophils # (Auto) 5.9 TH/MM3 Lymphocytes # (Auto) 2.6 TH/MM3 Monocytes # (Auto) 0.7 TH/MM3 Eosinophils # (Auto) 0.3 TH/MM3 Basophils # (Auto) 0.1 TH/MM3 CBC Comment DIFF FINAL Differential Comment Blood Urea Nitrogen 17 MG/DL Creatinine 1.09 MG/DL Random Glucose 93 MG/DL Calcium Level 9.3 MG/DL Sodium Level 140 MEQ/L Potassium Level 3.8 MEQ/L Chloride Level 110 MEQ/L Carbon Dioxide Level 24.0 MEQ/L Anion Gap 6 MEQ/L Estimat Glomerular Filtration Rate 76 ML/MIN [facility] Medical Decision Making Medical Screen Exam Complete: Yes Emergency Medical Condition: Yes Interpretation(s) afebrile, no tachycardia, hypertensive no leukocytosis electrolytes within normal limits Differential Diagnosis hypertension, hypertensive urgency, hypertensive emergency Narrative Course This is a 36-year-old male who has a history of chronic hypertension who presents to the emergency department having been sent in by his primary care doctor for high blood pressure. He is completely asymptomatic. An EKG demonstrates lateral ST changes that are similar to his prior. Labs are reassuring. Patient was given 29 g of IV labetalol and his blood pressure reduced 20%. I will discharge him on amlodipine and I asked him to follow up with his primary care physician as soon as possible for continued medication adjustment. Diagnosis Primary Impression: Chronic hypertension Patient Instructions: General Instructions Additional Instructions: If you develop severe chest pain, shortness of breath, sweating, lightheadedness , dizziness or difficulty breathing return to the emergency department immediately. Followup with your primary care physician in 2-3 days if your symptoms are not resolved. Med/Other Pt SpecificInfo: Prescription(s) given Scripts Amlodipine (Amlodipine) 5 Mg Tab 5 MG PO DAILY for Blood Pressure Management, #30 TAB 0 Refills Prov: Olya Farr MD 08/17/17 Disposition: 01 DISCHARGE HOME Condition: Stable Olya Farr MD Aug 17, 2017 12:46
--- NOTE | 2017-08-18 16:19 | EKG ---
Date Performed: 08/17/2017 Time Performed: 12:04:02 PTAGE: 36 years EKG: Sinus rhythm LVH WITH SECONDARY ST-T WAVE CHANGE Compared to prior tracing no significant change ABNORMAL ECG PREVIOUS TRACING : 12/14/2016 23.01 DOCTOR: Damien Springer Interpretating Date/Time 08/18/2017 16:19:02
== END 2017-08-17 14:49 | disposition home or self-care (01) ==
LOC: NEPC 11:20
DX: I10 Essential (primary) hypertension (principal); F17.200 Nicotine dependence, unspecified, uncomplicated
CPT/HCPCS: 80048; 85025; 93005; 96374